=== PATIENT | male | born 1995 | race Caucasian/White ===

== ENCOUNTER 2019-03-12 16:06 | Inpatient (IN) | payer OTHER ==
[~2019-03-12] VITALS: Ht 172.7 cm; Wt 88.4 kg
[2019-03-12 16:52] VITALS: BP 141/69; PULSE 100; TEMP 100.8
--- NOTE | 2019-03-12 18:00 | NUR ---
Assessment completed, alert/oriented, vital signs stable, reports abd pain is controlled and 2/10 at this time, BS+, tender to palpation, heart RRR, lungs CTA, meds/allergies/pharmacy reviewed, has been by to see him, will do CL diet/ denies any N/V, will start IVF and abx, 20G IV placed to right forearm, denies other needs at this time
[2019-03-12 18:21] LABS: HEMATOCRIT 47.4 % (42.0-52.0); MEAN CELL VOLUME 88 fl (80.0-100.0); MEAN CORPUSCULAR HEMOGLOBIN 32 pg (27.0-31.0); MEAN CORPUSCULAR HGB CONC 36 g/dl (33.0-37.0); MEAN PLATELET VOLUME 10.5 fl (7.4-10.4); PLATELET COUNT 141 K/mm3 (130-400); RED BLOOD COUNT 5.37 M/mm3 (4.20-5.60)
[2019-03-12 18:25] LABS: CALCIUM 9.6 mg/dL (8.4-10.2); CREATININE, serum 0.95 (0.66-1.25); POTASSIUM 4.5 mmol/L (3.4-5.0)
[2019-03-12 18:36] LABS: C-REACTIVE PROTEIN 19.1 mg/dL (0.0-0.9)
--- NOTE | 2019-03-12 19:30 | NUR ---
Shift assessment complete. Patient in bed, awake. Friend at bedside. States pain in RQ in 3/10 with movement. Denies pain medication. Denies further needs at this time. Will continue to monitor.
[2019-03-12 20:30] LABS: LYMPHOCYTE 7 % (20.0-51.0); NEUTROPHILS 89 % (42.0-75.2); PLATELET ESTIMATE NORMAL (NORMAL)
[2019-03-13] VITALS (8 sets, daily range): BP systolic 104–130; BP diastolic 55–63; PULSE 80–101; TEMP 98.7–100.6
--- NOTE | 2019-03-13 03:59 | NUR ---
Patient in bed, awake. Denies pain. Temp 100.2. Instructed patient to C&DB, and move around. 650mg tylenol given per prn order. Will recheck temp in 1 hour. Denies further needs at this time. Will continue to monitor.
[2019-03-13 06:09] LABS: HEMATOCRIT 41.6 % (42.0-52.0); MEAN CELL VOLUME 89 fl (80.0-100.0); MEAN CORPUSCULAR HEMOGLOBIN 32 pg (27.0-31.0); MEAN CORPUSCULAR HGB CONC 36 g/dl (33.0-37.0); MEAN PLATELET VOLUME 10.7 fl (7.4-10.4); PLATELET COUNT 182 K/mm3 (130-400); RED BLOOD COUNT 4.68 M/mm3 (4.20-5.60); REDCELL DISTRIBUTION WIDTH-CV 12.4 % (11.5-14.5)
[2019-03-13 06:16] LABS: HEMOGLOBIN 14.9 g/dl (13.5-18.0)
--- NOTE | 2019-03-13 08:55 | NUR ---
Pt alert and oriented. Pain in RLQ at rest 2/10 with certain movements pain increases. Pt incontinent of BM this am. Pt independent in the room but calls for help if needed. Pt ate 20% of am tray. Pt has call light in reach and IV patent no infiltration or redness noted.
--- NOTE | 2019-03-13 08:57 | NUR ---
BRYAN met with the patient to discuss discharge plan. The patient lives with his roommate, Negro, in [place]. 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 He states that his parents live in [place], [place] (Rich-father ph#[phone]). He reports independence with ADLs and does not have any DME. The patient receives primary care at [facility] and he receives his medications at [facility]. He reports no difficulties obtaining his meds. The patient plans to return home with his roommate upon discharge. BRYAN contacted and notified Yumiko at [employer]'s [employer] of the patient's hospitalization. No additional needs at this time.
--- NOTE | 2019-03-13 09:51 | NUR ---
Initial visit; Patient thanked Rating Specialist for looking in on him and offering God's blessings.
--- NOTE | 2019-03-13 15:56 | NUR ---
Pt stable this afternoon. Pt states he is feeling a little congested. LS clear x4. Pt pain 4/10 and given PRN Tylenol. Pt denies needs at this time. Pt has fluids running per orders and patent no infiltration or redness noted.
--- NOTE | 2019-03-13 19:29 | NUR ---
Pt report to [facility].
--- NOTE | 2019-03-13 20:15 | NUR ---
RECEIVED REPORT FROM [facility]; PT IS LAYING IN BED. NO COMPLAINTS OF PAIN OR DISCOMFORT. PT'S CALL LIGHT AND PERSONAL BELONGINGS WITHIN REACH. NO CONCERNS AT THIS TIME.
[2019-03-14 04:01] VITALS: BP 120/53; PULSE 82; TEMP 99.6
[2019-03-14 06:24] LABS: MEAN CELL VOLUME 91 fl (80.0-100.0); MEAN CORPUSCULAR HEMOGLOBIN 31 pg (27.0-31.0); MEAN CORPUSCULAR HGB CONC 34 g/dl (33.0-37.0); MEAN PLATELET VOLUME 10.6 fl (7.4-10.4); PLATELET COUNT 170 K/mm3 (130-400); RED BLOOD COUNT 4.07 M/mm3 (4.20-5.60); REDCELL DISTRIBUTION WIDTH-CV 12.3 % (11.5-14.5)
[2019-03-14 06:31] LABS: HEMOGLOBIN 12.7 g/dl (13.5-18.0)
[2019-03-14 06:35] LABS: CALCIUM 8.8 mg/dL (8.4-10.2); CREATININE, serum 0.98 (0.66-1.25)
[2019-03-14 07:44] VITALS: BP 104/56; PULSE 85; TEMP 99.7
--- NOTE | 2019-03-14 07:58 | NUR ---
PT HAD AN UNEVENTFUL NIGHT. GAVE REPORT TO JOANNE. PT HAS NO COMPLAINTS OF PAIN AT THIS TIME. HIS CALL LIGHT AND PERSONAL ITEMS ARE WITHIN REACH. NO OTHER CONCERNS AT THIS TIME.
--- NOTE | 2019-03-14 09:10 | NUR ---
Pt assessment completed and charted. Pt A&O, laying in bed watching tv, independent in room. Pt currently denies pain unless he "twists the right way". Denies pain medication at this time. Denies SOB, dizziness, N/V/D, numbness, tingling, palpitations. Pt has RFA IV w/ NS @100 ml/hr and Zosyn running w/ no complications. No other concerns voiced at this time. Call light within reach.
--- NOTE | 2019-03-14 10:07 | NUR ---
Visited, listened, and provided spiritual care.
[2019-03-14 11:28] VITALS: BP 99/64; PULSE 80; TEMP 99.8
--- NOTE | 2019-03-14 12:08 | NUR ---
Pt showered, hooked back up to abx and fluids. Denies pain at this time. Diet changed to low fiber. No concerns noted at this time.
--- NOTE | 2019-03-14 14:21 | NUR ---
Pt laying in bed watching game, states he has a headache. PRN tylenol administered per JUL. No othe concens noted at this time. Denies other pain.
[2019-03-14 15:10] VITALS: BP 113/60; PULSE 96; TEMP 99
--- NOTE | 2019-03-14 16:28 | NUR ---
Pt sitting in bed on laptop, states headache feels better, denies other pain at this time. Zosyn running at 25ml/hr. No other concerns voiced at this time.
[2019-03-14 19:11] VITALS: BP 117/64; PULSE 89; TEMP 99
[2019-03-14 23:49] VITALS: BP 121/59; PULSE 89; TEMP 98.8
[2019-03-15 03:51] VITALS: BP 119/64; PULSE 88; TEMP 98
[2019-03-15 06:05] LABS: BASO % 0.3 % (0.0-2.0); EOS # 0.1 (0.0-0.7); EOS % 1.5 % (0-4.0); GRAN # 7.1 (1.4-6.5); GRAN % 78.9 % (42.2-75.2); HEMATOCRIT 37.4 % (42.0-52.0); HEMOGLOBIN 12.8 g/dl (13.5-18.0); LYMPH # 0.9 (1.2-3.4); LYMPH % 10.4 % (20.0-51.0); MEAN CELL VOLUME 91 fl (80.0-100.0); MEAN CORPUSCULAR HEMOGLOBIN 31 pg (27.0-31.0); MEAN CORPUSCULAR HGB CONC 34 g/dl (33.0-37.0); MEAN PLATELET VOLUME 10.5 fl (7.4-10.4); MONO # 0.8 (0.1-0.6); MONO % 8.7 % (1.7-9.3); PLATELET COUNT 193 K/mm3 (130-400); REDCELL DISTRIBUTION WIDTH-CV 12.2 % (11.5-14.5)
[2019-03-15 07:23] VITALS: BP 116/65; PULSE 85; TEMP 99.2
--- NOTE | 2019-03-15 07:31 | NUR ---
Report given to Erinn, no concerns at this time.
--- NOTE | 2019-03-15 10:17 | NUR ---
Pt assessment completed and charted. VSS. Pt denies pain at this time. Abx and fluids running with no complications in RFA. No other concerns voiced at this time. Call light within reach.
[2019-03-15 11:18] VITALS: BP 112/65; PULSE 90; TEMP 98.1
[2019-03-15] MEDS ORDERED: AMOXICILLIN 8751 TAB PO (12:08)
[2019-03-15] MEDS ORDERED: NORCO 325 MG-51 TAB PO (12:08)
--- NOTE | 2019-03-15 14:15 | NUR ---
Pt discharged, instructions discussed and reviewed w/ patient who verbalized unerstanding. prescriptions given to patient. RFA IV dc'd w/ catheter tip intact, no complications. All questions answered and no other concerns voiced at this time. Pt escorted out by this nurse.
== END 2019-03-15 14:15 | disposition home or self-care (01) | DRG 373 ==
LOC: COL.ER 16:06 → MEDICAL 16:39
PROVIDERS: Surgery; ADMIT Surgery
DX: K35.33 Acute appendicitis with perforation, localized peritonitis, and gangrene, with abscess (principal); Z88.8 Allergy status to other drugs, medicaments and biological substances
CPT/HCPCS: J2405; J2543; J7030

== ENCOUNTER → 2019-03-12 | Outpatient (CLI) | payer OTHER ==
[~2019-03-12] MED LIST: AMOXICILLIN 8751 TAB PO; NORCO 325 MG-51 TAB PO
== END ==
LOC: COL.RAD 14:48
DX: K35.32 Acute appendicitis with perforation, localized peritonitis, and gangrene, without abscess (principal)
CPT/HCPCS: Q9967

== ENCOUNTER 2019-06-11 06:24 | Day surgery (SDC) | payer OTHER ==
[~2019-06-11] VITALS: Ht 170.2 cm; Wt 88.2 kg
[2019-06-11 06:58] VITALS: BP 123/69; PULSE 64; TEMP 98.4
[2019-06-11] MEDS ORDERED: TYLENOL 325MG325 MG PO (07:08)
--- NOTE | 2019-06-11 07:08 | NUR ---
TO RM 1 AT 0633- CALL LIGHT IN REACH FATHER AT BEDSIDE.
[2019-06-11 09:50] VITALS: BP 116/63; PULSE 67; TEMP 97.7
--- NOTE | 2019-06-11 09:50 | NUR ---
TO RM 1 PER CART FROM PACU. ALERT ORIENTED X3, TALKING TO STAFF AND FATHER. SIPPING ON WATER. EFOXIN DRESSING OVER SITES, CLEAN DRY INTACT. C/O INCISIONS SITES BEING SORE.
[2019-06-11] MEDS ORDERED: ULTRAM 50MG TAB50 MG PO (10:00)
[2019-06-11 10:05] VITALS: BP 126/73; PULSE 69
[2019-06-11 10:20] VITALS: BP 111/64; PULSE 62
--- NOTE | 2019-06-11 10:20 | NUR ---
ATE CRACKERS AND FINISHED GLASS OF WATER
[2019-06-11 10:35] VITALS: BP 117/63; PULSE 67
--- NOTE | 2019-06-11 10:35 | NUR ---
TALKING WITH FATHER AND TEXTING ON PHONE
--- NOTE | 2019-06-11 10:45 | NUR ---
OFFERED PAIN MEDICINE PRIOR TO GETTING UP TO BATHROOM. PATIENT REFUSED ANY PAIN MEDS. AMBULATED TO BATHROOM STEADY GAIT. VOIDED AND TOLERATED WELL.
--- NOTE | 2019-06-11 11:10 | NUR ---
RECEIVED DISCHARGED INSTRUCTIONS AND VERBALIZED UNDERSTANDING. DISCONTINUED IV AND INT- CATHETER INTACT.
== END 2019-06-11 11:30 | disposition home or self-care (01) ==
LOC: SDCO 06:24
DX: K38.8 Other specified diseases of appendix (principal); Z88.1 Allergy status to other antibiotic agents; F17.220 Nicotine dependence, chewing tobacco, uncomplicated
CPT/HCPCS: J0690; J0694; J1100; J1885; J2405; J2704; J7120